=== PATIENT | male | born 1955 | race American Indian/Alaskan Native ===

== ENCOUNTER 2017-06-22 09:12 | Emergency (ER) | payer MEDICAID ==
--- NOTE | 2017-06-22 16:22 | Emergency Department Report ---
ED General Adult HPI - General Chief complaint: Alcohol Stated complaint: NEEDS HELP ALCHOL Time Seen by Provider: 06/22/17 16:15 Source: patient Mode of arrival: Ambulatory Limitations: No Limitations - History of Present Illness Initial comments: She is a 61-year-old male past medical history of alcohol abuse who presents here for referral. Patient states that he uses cocaine and alcohol. He states he last used yesterday and that he wants to go to outpatient rehabilitation. Patient states that he is homeless currently he has no homicidal or suicidal ideation. Patient has no tremors and states that he needed a referral. Patient denies having any pain and patient is not agitated. Severity scale (0 -10): 0 - Related Data Home Medications Medication Instructions Recorded Confirmed Last Taken Lisinopril [Zestril TAB] 20 mg PO BID 06/12/15 11/09/15 11/09/15 Previous Rx's Medication Instructions Recorded Last Taken Type Pantoprazole [Protonix TAB] 40 mg PO QDAY #30 tablet 05/07/15 1 Week Ago Rx Aspirin EC [Aspirin Enteric Coated 81 mg PO QDAY #90 tablet. 06/13/15 1 Week Ago Rx TAB] Metoprolol Xl [Metoprolol 25 mg PO QDAY #90 tablet 06/13/15 11/09/15 Rx SUCCINATE ER TAB] HYDROcodone/APAP 5-325 [Malone 1 each PO Q6HR PRN #10 tablet 11/09/15 Unknown Rx 5/325] Pantoprazole [Protonix] 40 mg PO QDAY #30 tablet 11/09/15 Unknown Rx Allergies Allergy/AdvReac Type Severity Reaction Status Date / Time No Known Allergies Allergy Verified 05/06/15 22:05 ED Review of Systems ROS: Stated complaint: NEEDS HELP ALCHOL Other details as noted in HPI Constitutional: denies: chills, fever Eyes: denies: eye pain, eye discharge, vision change ENT: denies: ear pain, throat pain Respiratory: denies: cough, shortness of breath, wheezing Cardiovascular: denies: chest pain, palpitations Endocrine: no symptoms reported Gastrointestinal: denies: abdominal pain, nausea, diarrhea Genitourinary: denies: urgency, dysuria Musculoskeletal: denies: back pain, joint swelling, arthralgia Skin: denies: rash, lesions Neurological: denies: headache, weakness, paresthesias Psychiatric: denies: anxiety, depression Hematological/Lymphatic: denies: easy bleeding, easy bruising ED Past Medical Hx - Past Medical History Previous Medical History?: Yes Hx Hypertension: Yes Hx Congestive Heart Failure: No Hx Diabetes: No Hx GERD: Yes Hx Asthma: No Hx COPD: No Additional medical history: Hx of gastric ulcers - Surgical History Past Surgical History?: Yes Additional Surgical History: UGI - Social History Smoking Status: Current Every Day Smoker Substance Use Type: Alcohol, Cocaine, Marijuana - Medications Home Medications: Home Medications Medication Instructions Recorded Confirmed Last Taken Type Pantoprazole [Protonix TAB] 40 mg PO QDAY #30 tablet 05/07/15 11/09/15 1 Week Ago Rx Lisinopril [Zestril TAB] 20 mg PO BID 06/12/15 11/09/15 11/09/15 History Aspirin EC [Aspirin Enteric Coated 81 mg PO QDAY #90 tablet. 06/13/15 1 Week Ago Rx TAB] Metoprolol Xl [Metoprolol 25 mg PO QDAY #90 tablet 06/13/15 11/09/15 11/09/15 Rx SUCCINATE ER TAB] HYDROcodone/APAP 5-325 [Malone 1 each PO Q6HR PRN #10 tablet 11/09/15 Unknown Rx 5/325] Pantoprazole [Protonix] 40 mg PO QDAY #30 tablet 11/09/15 Unknown Rx ED Physical Exam - General Limitations: No Limitations General appearance: alert, in no apparent distress - Head Head exam: Present: atraumatic, normocephalic - Eye Eye exam: Present: normal appearance - ENT ENT exam: Present: mucous membranes moist - Neck Neck exam: Present: normal inspection - Respiratory Respiratory exam: Present: normal lung sounds bilaterally. Absent: respiratory distress - Cardiovascular Cardiovascular Exam: Present: regular rate, normal rhythm. Absent: systolic murmur, diastolic murmur, rubs, gallop - GI/Abdominal GI/Abdominal exam: Present: soft, normal bowel sounds - Rectal Rectal exam: Present: deferred - Extremities Exam Extremities exam: Present: normal inspection - Back Exam Back exam: Present: normal inspection - Neurological Exam Neurological exam: Present: alert, oriented X3 - Psychiatric Psychiatric exam: Present: normal affect, normal mood - Skin Skin exam: Present: warm, dry, intact, normal color. Absent: rash ED Course Vital Signs 06/22/17 06/22/17 06/22/17 09:58 15:47 15:48 Temperature 98.7 F 99.3 F Pulse Rate 101 H 96 H Respiratory 20 16 16 Rate Blood Pressure 124/94 Blood Pressure 125/83 [Left] O2 Sat by Pulse 98 98 98 Oximetry ED Medical Decision Making - Lab Data Result diagrams: 06/22/17 17:27 06/22/17 17:27 Lab Results 06/22/17 06/22/17 06/22/17 Range/Units 17:27 17:27 17:27 WBC 8.6 (4.5-11.0) K/mm3 RBC 5.58 H (3.65-5.03) M/mm3 Hgb 9.9 L (11.8-15.2) gm/dl Hct 33.3 L (35.5-45.6) % MCV 60 L (84-94) fl MCH 18 L (28-32) pg MCHC 30 L (32-34) % RDW 25.2 H (13.2-15.2) % Plt Count 134 L (140-440) K/mm3 Lymph % (Auto) Equine Manager [place] % (Auto) Equine Manager Eos % (Auto) Equine Manager Baso % (Auto) Equine Manager Lymph # Equine Manager [place] # Equine Manager Eos # Equine Manager Baso # Equine Manager Seg Neutrophils % Equine Manager Seg Neutrophils # Equine Manager Sodium 138 (137-145) mmol/L Potassium 4.4 (3.6-5.0) mmol/L Chloride 95.5 L (98-107) mmol/L Carbon Dioxide 25 (22-30) mmol/L Anion Gap 22 mmol/L BUN 27 H (9-20) mg/dL Creatinine 2.2 H (0.8-1.5) mg/dL Estimated GFR 37 ml/min BUN/Creatinine Ratio 12 % Glucose 75 (75-100) mg/dL Calcium 9.7 (8.4-10.2) mg/dL Total Bilirubin 0.40 (0.1-1.2) mg/dL AST 43 H (5-40) units/L ALT 29 (7-56) units/L Alkaline Phosphatase 113 (35-129) units/L Total Protein 8.1 (6.3-8.2) g/dL Albumin 4.0 (3.9-5) g/dL Albumin/Globulin Ratio 1.0 % Plasma/Serum Alcohol < 0.01 (0-0.07) gm% - Medical Decision Making Chief Medical diagnosis: Cocaine withdrawal Differential medical diagnosis: Hypoglycemia, alcohol withdrawal CBC, CMP, and I'll have mental health worker evaluate for discharge referral Patient has just drug withdrawal patient is medically clear for outpatient therapy discussed final patient he agrees. Additional verbal discharge instructions were given. Critical care attestation.: If time is entered above; I have spent that time in minutes in the direct care of this critically ill patient, excluding procedure time. ED Disposition Clinical Impression: Cocaine abuse, AA (alcohol abuse) Alcohol withdrawal Qualifiers: Complication of substance-induced condition: uncomplicated Qualified Code(s): F10.230 - Alcohol dependence with withdrawal, uncomplicated CKD (chronic kidney disease) Qualifiers: Chronic kidney disease stage: stage 3 (moderate) Qualified Code(s): N18.3 - Chronic kidney disease, stage 3 (moderate) Disposition: DC-01 TO HOME OR SELFCARE Is pt being admited?: No Does the pt Need Aspirin: No Condition: Stable Instructions: Abuse of Alcohol (ED), Alcohol Withdrawal (ED) Referrals: AMY MALCOLM MD [Staff Physician] - 3-5 Days [facility] [Outside] - 3-5 Days
[2017-06-22 17:57] LABS: Red Blood Count 5.58 M/mm3 (3.65-5.03); White Blood Count 8.6 K/mm3 (4.5-11.0)
[2017-06-22 17:58] LABS: Hematocrit 33.3 % (35.5-45.6); Hemoglobin 9.9 gm/dl (11.8-15.2); Mean Corpuscular HGB Conc 30 % (32-34); Mean Corpuscular Hemoglobin 18 pg (28-32); Mean Corpuscular Volume 60 fl (84-94)
[2017-06-22 17:59] LABS: Platelet Count 134 K/mm3 (140-440); Red Cell Distribution Width 25.2 % (13.2-15.2)
[2017-06-22 18:07] LABS: Bilirubin,Total 0.4 mg/dL (0.1-1.2); Calcium 9.7 mg/dL (8.4-10.2); Chloride 95.5 mmol/L (98-107); Potassium 4.4 mmol/L (3.6-5.0); Total Protein 8.1 g/dL (6.3-8.2)
[2017-06-22 18:56] LABS: Basophils % (Manual) 0 % (0.0-1.8); Blastocytes % (Manual) 0 %
[2017-06-22 18:57] LABS: Anisocytosis 2+; Hypochromasia 3+; Ovalocytes Few; Platelet Estimate Consistent w Auto
[2017-06-22 18:58] LABS: Diff Status Complete; Microcytosis 2+
[2017-06-22 20:37] VITALS: BP 120/88
== END 2017-06-22 20:40 | disposition home or self-care (01) ==
LOC: ED 09:12
DX: F10.230 Alcohol dependence with withdrawal, uncomplicated (principal); K21.9 Gastro-esophageal reflux disease without esophagitis; I12.9 Hypertensive chronic kidney disease with stage 1 through stage 4 chronic kidney disease, or unspecified chronic kidney disease; N18.3 Chronic kidney disease, stage 3 (moderate)
CPT/HCPCS: 36415; 80053; 85007; 85025; 99284; G0480; 80320